=== PATIENT | male | born 1945 | race Caucasian/White ===

== ENCOUNTER 2020-10-17 07:30 | Inpatient (IN) | payer MEDICARE ==
[~2020-10-17] VITALS: Ht 177.8 cm; Wt 156.6 kg
[~2020-10-17 07:30] MED LIST: Cephalexin500 MG PO; Dyazide 37.5/251 EA PO; HYDR1TAB94 PO
[2020-10-17 09:26] LABS: Hematocrit 34.3 % (37.0-53.0); Mean Corpuscular HGB 32.9 pg (26.0-34.0); Mean Corpuscular Volume 94 fL (80-100); NRBC ABSOLUTE 0.47 K/mm3 (0.00-0.02); NRBC Auto 2.6 /100 WBC (0.0-0.2); RDW Coefficient Variation 15.9 % (11.7-14.2); RDW Standard Deviation 55.1 fL (35.1-46.3); Red Blood Cell Count 3.65 M/mm3 (4.30-5.90); White Blood Cell Count 18.37 K/mm3 (4.00-11.30)
[2020-10-17 09:30] LABS: Platelet Count 16 K/mm3 (150-400)
[2020-10-17 09:50] LABS: Alanine Aminotransfer (ALT/SGP 36 U/L (12-78); Albumin, Blood 2.2 g/dL (3.4-5.0); Albumin/Globulin Ratio 0.5 (0.8-1.8); Alk Phos 65 U/L (50-136); Anion Gap 5 mmol/L (6-16); Aspartate Aminotrans (AST/SGOT 45 U/L (12-37); Bilirubin, Total 1.3 mg/dL (0.1-1.0); Blood Urea Nitrogen 17 mg/dL (8-24); Bun/Creatinine Ratio 19.2 (12.0-20.0); CO2, Blood 29 mmol/L (21-32); Calcium, Blood 8.1 mg/dL (8.5-10.1); Chloride, Blood 96 mmol/L (98-108); Creatinine, Blood 0.89 mg/dL (0.60-1.20); Globulin, Blood 4.7 g/dL (2.2-4.0); Glomerular Filtration Rate >60 (60-); Glucose, Blood 131 mg/dL (70-99); Sodium, Blood 130 mmol/L (136-145); Total Protein, Blood 6.9 g/dL (6.4-8.2)
[2020-10-17 10:00] LABS: BAND PERCENT MAN 1 % (0-8); BASOPHILS PERCENT MAN 0 % (0-2); BLASTS PERCENT MAN 75 % (0-0); EOSINOPHILS PERCENT MAN 0 % (0-6); LYMPHOCYTES ABSOLUTE MAN 0.91 K/mm3 (0.84-5.20); LYMPHOCYTES PERCENT MAN 5 % (21-46); MONOCYTES ABSOLUTE MAN 2.02 K/mm3 (0.16-1.47); MONOCYTES PERCENT MAN 11 % (4-13); NEUTROPHILS ABSOLUTE MAN 1.46 K/mm3 (1.96-9.15); PLASMA CELL ABSOLUTE MAN 0.18 K/mm3 (0.00-0.00); PLASMA CELLS PERCENT MAN 1 % (0-0); SEG NEUTROPHILS PERCENT MAN 7 % (41-73); TOTAL CELLS COUNTED 100
[2020-10-17 10:30] LABS: Source, Urine Clean Catch
[2020-10-17 10:35] LABS: International Normalized Ratio 1.16; Prothrombin Time Results 12.4 Sec (9.7-11.5)
[2020-10-17 10:45] LABS: Bilirubin, Urine Neg (Neg); Blood, Urine 5+ (Neg); Glucose Qualitative, Urine Neg (Neg); Ketones, Urine 1+ (Neg); Leukocyte Esterase, Urine Neg (Neg); Nitrite, Urine Neg (Neg); Protein, Urine 2+ (Neg); Specific Gravity, Urine 1.015 (1.003-1.022); Urobilinogen, Urine 3+ (Normal)
[2020-10-17 11:05] LABS: Appearance, Urine Hazy (Clear); Color, Urine Yellow (P-Yellow); Squamous Epithelial Cells Few /hpf (Few); White Blood Cells, Urine Not Seen /hpf (0-5)
[2020-10-17 11:06] LABS: Bacteria Rare /hpf
[2020-10-17] MEDS ORDERED: DYAZIDE 37.5-21 EACH PO (11:58)
--- NOTE | 2020-10-17 15:28 | NUR ---
pt arrived to room pcu 2 from er dept pt being admitted for sepsis pt febrile pt unable to amb past 4 days pain to r knee has a michael lift sheet from home under him pt incont of urine bed bath given pt will need a lift room talked with charge machine operator will place in that room
--- NOTE | 2020-10-17 17:57 | NUR ---
NO ACUTE EVENTS SINCE ARRIVAL TO UNIT. PT IS ALERT AND ORIENTED. VSS ON ROOM AIR. PT DENIES PAIN. BED IN LOW POSITION, CALL LIGHT WITHIN REACH.
[2020-10-18 04:14] LABS: Hematocrit 28.3 % (37.0-53.0); Hemoglobin 9.6 g/dL (13.5-17.5); Mean Corpuscular HGB 33.2 pg (26.0-34.0); Mean Corpuscular HGB Conc 33.9 g/dL (31.5-36.5); Mean Corpuscular Volume 98 fL (80-100); NRBC ABSOLUTE 0.62 K/mm3 (0.00-0.02); NRBC Auto 2.8 /100 WBC (0.0-0.2); RDW Standard Deviation 57.5 fL (35.1-46.3); Red Blood Cell Count 2.89 M/mm3 (4.30-5.90); White Blood Cell Count 22.45 K/mm3 (4.00-11.30)
[2020-10-18 04:47] LABS: Mean Platelet Volume 14.6 fL (9.1-12.4); Platelet Count 14 K/mm3 (150-400)
[2020-10-18 04:54] LABS: Alanine Aminotransfer (ALT/SGP 30 U/L (12-78); Albumin, Blood 1.8 g/dL (3.4-5.0); Albumin/Globulin Ratio 0.5 (0.8-1.8); Alk Phos 59 U/L (50-136); Anion Gap 6 mmol/L (6-16); Aspartate Aminotrans (AST/SGOT 31 U/L (12-37); Blood Urea Nitrogen 16 mg/dL (8-24); Bun/Creatinine Ratio 18.8 (12.0-20.0); CO2, Blood 26 mmol/L (21-32); Calcium, Blood 7.4 mg/dL (8.5-10.1); Chloride, Blood 102 mmol/L (98-108); Creatinine, Blood 0.85 mg/dL (0.60-1.20); Globulin, Blood 3.9 g/dL (2.2-4.0); Glomerular Filtration Rate >60 (60-); Glucose, Blood 115 mg/dL (70-99); Potassium, Blood 3.5 mmol/L (3.5-5.5); Sodium, Blood 134 mmol/L (136-145); Total Protein, Blood 5.7 g/dL (6.4-8.2)
--- NOTE | 2020-10-18 05:17 | NUR ---
shift summary pt rested well through the night. alert and oriented, able to make needs known. cooperative with plan of care. sats >90% on room air. tele nsr. c/o pain to that right leg/knee. attempted to void to urinal, but accidentally spilt in attends on on bed - needs help holding urinal. no bm. platelets came back critically low at 14 (16 day before), notified fashion patternmaker, notes that they wont transfuse platelets until under 10. no signs/symptoms of bleeding. vss. call light within reach, bed in lowest position. will continue to monitor.
[2020-10-18 05:39] LABS: BASOPHILS ABSOLUTE MAN 0.22 K/mm3 (0.00-0.23); BASOPHILS PERCENT MAN 1 % (0-2); BLASTS PERCENT MAN 74 % (0-0); EOSINOPHILS PERCENT MAN 0 % (0-6); LYMPHOCYTES ABSOLUTE MAN 0.22 K/mm3 (0.84-5.20); LYMPHOCYTES PERCENT MAN 1 % (21-46); METAMYELOCYTE ABSOLUTE MAN 0.22 K/mm3 (0.00-0.00); METAMYELOCYTE PERCENT MAN 1 % (0-0); MONOCYTES ABSOLUTE MAN 2.46 K/mm3 (0.16-1.47); MONOCYTES PERCENT MAN 11 % (4-13); MYELOCYTE ABSOLUTE MAN 0.22 K/mm3 (0.00-0.00); MYELOCYTE PERCENT MAN 1 % (0-0); NEUTROPHILS ABSOLUTE MAN 2.24 K/mm3 (1.96-9.15); PROMYELOCYTE ABSOLUTE MAN 0.22 K/mm3 (0.00-0.00); PROMYELOCYTE PERCENT MAN 1 % (0-0); SEG NEUTROPHILS PERCENT MAN 10 % (41-73); TOTAL CELLS COUNTED 100
--- NOTE | 2020-10-18 12:58 | NUR ---
Spiritual care visit conducted. Patient is sitting up in bed and alert. 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 Patient tells me that his ex- and 4 daughters did not handle the bad news well. He was clear that the 2 daughters that live in the [place] area are his best support and that his goal is to be near them. He shares about how his dad of the same or similar type of Leukemia and so that adds to the fear of what he is dealing with. Patient stated that his approach is not to cross any bridge until he gets there and so he will just face each challenge as it comes. He also explains that his [employer] jad is meaningful to him and the prayer is a great strength and solid focus for him. He has a Oriental Orthodox background. I reinforce helpful attitudes and practices, normalize his fears and provide therapeutic listening, pastoral eap counselor and prayer. Patient responds well and shows signs of increased peace. I will continue to encourage patient in the emotional/spiritual aspect of dealing with this cancer.
[2020-10-18 13:38] LABS: SARS-Cov-2 (COVID-19) PCR, MMC NEGATIVE (NEGATIVE)
--- NOTE | 2020-10-18 17:52 | NUR ---
SHIFT SUMMARY NO ACUTE EVENTS THIS SHIFT, VSS. PT ALERT AND ORIENTED, COOPERATIVE WITH CARE AND CALLS APPROPRIATELY. PT DENIED PAIN/DISCOMFORT. VOIDING IN URINAL. O2 SATS REMAINED >90% ON ROOM AIR, HOWEVER PT APPEARS TACHYPNEIC AT TIMES. PT ABLE TO REPOSITION SELF IN BED.
[2020-10-19 04:46] LABS: Vancomycin, Trough 9.6 ug/mL (5.0-10.0)
--- NOTE | 2020-10-19 05:59 | NUR ---
shift summary pt rested well through night. alert and oriented, able to make needs known. cooperative [facility] plan of care. sats >90% on room air. tele nsr. afebrile. voiding to urinal, with some incontinent episodes. pain meds x1. updated [facility] on patient condition. no beds at this time, but [facility] updated. turning in bed q2. vss. call light within reach, bed in lowest position. will continue to monitor.
[2020-10-19 07:45] LABS: Hematocrit 27.7 % (37.0-53.0); Hemoglobin 9.5 g/dL (13.5-17.5); Mean Corpuscular HGB 33.1 pg (26.0-34.0); Mean Corpuscular HGB Conc 34.3 g/dL (31.5-36.5); Mean Corpuscular Volume 97 fL (80-100); NRBC ABSOLUTE 0.95 K/mm3 (0.00-0.02); NRBC Auto 3.1 /100 WBC (0.0-0.2); RDW Coefficient Variation 16.1 % (11.7-14.2); RDW Standard Deviation 57.5 fL (35.1-46.3); Red Blood Cell Count 2.87 M/mm3 (4.30-5.90); White Blood Cell Count 30.63 K/mm3 (4.00-11.30)
[2020-10-19 07:56] LABS: Platelet Count 14 K/mm3 (150-400)
[2020-10-19 08:04] LABS: BASOPHILS PERCENT MAN 0 % (0-2); EOSINOPHILS PERCENT MAN 0 % (0-6); MONOCYTES ABSOLUTE MAN 3.98 K/mm3 (0.16-1.47); MONOCYTES PERCENT MAN 13 % (4-13)
[2020-10-19 08:07] LABS: BAND PERCENT MAN 1 % (0-8); LYMPHOCYTES % ATYPICAL MANUAL 21 % (0-0); LYMPHOCYTES ABSOLUTE MAN 21.44 K/mm3 (0.84-5.20); LYMPHOCYTES PERCENT MAN 49 % (21-46); MYELOCYTE PERCENT MAN 1 % (0-0); SEG NEUTROPHILS PERCENT MAN 15 % (41-73); TOTAL CELLS COUNTED 100
--- NOTE | 2020-10-19 19:30 | NUR ---
PT RECEIVED OXYCODONE 3X PER JUN FOR REPORTS OF LLE PAIN; PT REFUSED SEVERAL TURNS IN SPITE OF EDUCATION AND WAS STRONGLY ENCOURAGED TO BE TURNED Q2H; PT'S SATS 88% ON RA SO NC APPLIED WITH 2LNC AND TITRATED TO 4LNC; PT WHEEZY IN AFTERNOON AND FLUIDS D/C'ED, FUROSEMIDE ADMINISTERED, AND UPDRAFT GIVEN BY RT WITH CPAP SETUP WTH 4L BLEED-IN PREPARED FOR NIGHT TIME; LUNG SOUNDS MODERATELY CLEARER AFTER TREATMENT AND RX; PT UNABLE TO USE URINAL SO VOID COUNTS CONDUCTED, FLUID BALANCE THEREFORE INACCURATE CALCULATED IN [employer]; MARGAUX FELIPE AT [facility] CALLED FOR UPDATES AT 1713 AND GAVE CALLBACK NUMBER [phone], [facility] BED NOT YET AVAILABLE PER HER REPORT; PT DENIES ADDITIONAL CONCERNS AT THIS TIME
--- NOTE | 2020-10-19 22:06 | NUR ---
PT UPDATE [facility] CALLED APPROX 2100 TO NOTIFY OF BED FOR PT. CALL PLACED TO MD LUIS TO ASK TO GIVE REPORT/UPDATE TO [facility] ACCEPTING PHYSICIAN. AFTER REPORT GIVEN, AT APPROX 2150, [facility] CALLED PCU WITH ROOM NUMBER FOR PT. REPORT CALLED TO MARGAUX POWELL, AT [facility].
--- NOTE | 2020-10-19 23:39 | NUR ---
TRANFER AMBULANCE CREW ARRIVED TO PCU TO TAKE PT TO [facility]. PT SLID FROM PCU BED TO AMBULANCE STRETCHER BY 4 STAFF. PT ON 4L PORTABLE OXYGEN. MD LUIS IN ROOM TO ASSESS PT PRIOR TO TRANSFER, RECOMMENDED BREATHING TREATMENT TO BE GIVEN BY EMS. BELONGING WITH PT. PT TRANSFERRED AT APPROX 2320.
== END 2020-10-19 23:34 | disposition short-term general hospital (02) | DRG 872 ==
LOC: ER 07:30 → PCU 12:21
PROVIDERS: Internal Medicine; Nurse Practitioner Acute Care; Pharmacist; Physician Assistant; ADMIT Internal Medicine
DX: A41.9 Sepsis, unspecified organism (principal); C92.00 Acute myeloblastic leukemia, not having achieved remission; L03.115 Cellulitis of right lower limb; Z20.822 Contact with and (suspected) exposure to COVID-19; I10 Essential (primary) hypertension; M25.561 Pain in right knee; G89.29 Other chronic pain; D69.6 Thrombocytopenia, unspecified; E66.01 Morbid (severe) obesity due to excess calories; M19.90 Unspecified osteoarthritis, unspecified site; Z87.891 Personal history of nicotine dependence; Z90.49 Acquired absence of other specified parts of digestive tract
CPT/HCPCS: 36415; 71046; 73701; 80053; 80202; 81001; 83605; 83735; 83880; 84100; 84145; 84550; 85025; 85384; 85610; 85651; 85730; 86140; 87040; 87086; 94640; 94660; 94760; 94762; 96365-59; 96367-59; 97110; 97162; 97166; 99285-25; A9270; C1751; J0696; J1940; J2185; J3370; J7030; J7050; Q9967; U0004